=== PATIENT | male | born 1980 | race Caucasian/White ===

== ENCOUNTER 2020-05-13 17:11 | Outpatient (CLI) | payer BC, SELFPAY | END 2020-05-13 17:12 | disposition home or self-care (01) | LOC: ANHCOVIDVC 17:11 | PROVIDERS: PCP Family Medicine; Visit Provider Family Medicine | DX: Z23 Encounter for immunization (principal) | CPT/HCPCS: 0001A; 91300 ==

== ENCOUNTER 2020-06-03 16:06 | Outpatient (CLI) | payer BC, SELFPAY | END 2020-06-03 16:07 | disposition home or self-care (01) | LOC: ANHCOVIDVC 16:06 | PROVIDERS: PCP Family Medicine | DX: Z23 Encounter for immunization (principal) | CPT/HCPCS: 0002A; 91300 ==

== ENCOUNTER 2021-05-13 15:41 | Outpatient (CLI) | payer BC, SELFPAY ==
--- NOTE | ~2021-05-13 | CT_ITS ---
EXAMINATION: CT soft tissue neck wo con DATE: 05/13/2021 16:00 INDICATION: Localized swelling, mass, and lump of neck. TECHNIQUE: Computed tomography (CT) of the neck was performed without intravenous contrast. Automated exposure control and iterative reconstruction technique were employed. The dose-length product was 5 08.29 mGy-cm. COMPARISON: None FINDINGS: There is an 11 x 18 mm right mid internal jugular chain lymph node. There is a skin marker superficial to this area. There are no other enlarged lymph nodes. There is mild cervical spondylosis . IMPRESSION: 1. Mildly enlarged right mid internal jugular chain lymph node, which may be reactive, but lymphoma o r metastatic disease cannot be excluded. Given that the patient reports the lump has been present sin ce December, ultrasound-guided core needle biopsy is recommended. Reviewed, dictated and finalized at location A. ING CONTRACTOR IMPRESSION: 1. Mildly enlarged right mid internal jugular chain lymph node, which may be re active, but lymphoma or metastatic disease cannot be excluded. Given that the p atient reports the lump has been present since December, ultrasound-guided core needle biopsy is recommended.
== END 2021-05-13 15:42 | disposition home or self-care (01) ==
PROVIDERS: PCP Family Medicine; Visit Provider Family Medicine
DX: R22.1 Localized swelling, mass and lump, neck (principal)
CPT/HCPCS: 70490

== ENCOUNTER 2021-05-27 09:55 | Outpatient (CLI) | payer BC, SELFPAY ==
--- NOTE | ~2021-05-27 | US_ITS ---
EXAMINATION: US biopsy lymph node DATE: 05/27/2021 11:09 INDICATION: Enlarged right jugular chain lymph node TECHNIQUE: The procedure including the risks and benefits was discussed with the patient. Risks discu ssed included bleeding and infection. The patient understood the risks and agreed to proceed. The sk in overlying the anterior right neck was prepped and draped in usual sterile fashion. Anesthetic was administered with 1% lidocaine subcutaneously. An 18 gauge core biopsy needle was advanced under co ntinuous ultrasound observation to the lesion of interest. 6 core biopsy specimens were obtained. 2 were placed in formalin and 4 in RPMI media. The needle was removed and the entry site was cleaned a nd dressed. Post procedure ultrasound demonstrated no hemorrhage. FINDINGS: Ultrasound images demonstrate a 1.9 x 0.9 x 2.4 cm right jugular chain lymph node. Subseque nt images demonstrate biopsy needle advanced through the lymph node. IMPRESSION: 1. Successful Ultrasound-guided biopsy of a 2.4 x 1.9 x 0.9 cm right jugular chain lymph node. Reviewed, dictated and finalized at location A. IMPRESSION: 1. Successful Ultrasound-guided biopsy of a 2.4 x 1.9 x 0.9 cm right jugular ch ain lymph node.
== END 2021-05-27 09:56 | disposition home or self-care (01) ==
LOC: ANHIMG 09:56
PROVIDERS: PCP Family Medicine; Visit Provider Family Medicine
DX: R59.9 Enlarged lymph nodes, unspecified (principal)
CPT/HCPCS: 38505; 76942; 88305

== ENCOUNTER 2022-07-09 09:04 | Outpatient (CLI) | payer BC, SELFPAY ==
[2022-07-09 18:46] LABS: Basophils Absolute Auto 0.1 K/mm3 (0.0-0.1); Basophils Percent Auto 1.4 % (0.2-1.2); Eosinophils Absolute Auto 0.2 K/mm3 (0-0.3); Eosinophils Percent Auto 4.1 % (0-4.4); Hematocrit 50.6 % (42.0-52.0); Hemoglobin 16.9 g/dL (14.0-18.0); Immature Granulocyte Absolute 0.01 K/mm3 (0.00-0.031); Immature Granulocyte Percent A 0.2 % (0-0.5); Lymphocytes Absolute Auto 1.84 K/mm3 (0.9-3.2); Lymphocytes Percent Auto 37.5 % (18.3-44.2); Mean Corpuscular HGB Conc 33.4 g/dl (32-36); Mean Corpuscular Hemoglobin 29.6 pg (26-34); Mean Corpuscular Volume 88.8 fl (80-100); Mean Platelet Volume 9.5 fl (7.4-10.4); Monocytes Absolute Auto 0.5 K/mm3 (0.1-0.6); Monocytes Percent Auto 9.4 % (2.6-8.5); Neutrophils Absolute Auto 2.3 K/mm3 (1.3-6.7); Neutrophils Percent Auto 47.4 % (45.5-73.1); Platelet Count Result 224 k/mm3 (150-375); Red Cell Distribution Width 12.5 % (11.5-14.5); White Blood Count 4.9 K/mm3 (4.5-10.0)
[2022-07-09 18:58] LABS: Alanine Aminotransferase 25 U/L (6-50); Albumin Level 4.4 g/dL (3.5-5.1); Alkaline Phosphatase 59 U/L (38-126); Anion Gap 3 mmol/L (8-16); Aspartate Amino Transferase 37 U/L (17-59); Bilirubin,Total 0.9 mg/dL (0.2-1.3); Blood Urea Nitrogen 18 mg/dL (9-20); Calcium 9.2 mg/dL (8.4-10.2); Carbon Dioxide 34 mmol/L (22-30); Chloride 98 mmol/L (98-107); Cholesterol 175 mg/dL (0-200); Estimated Glomerular Filt Rate > 60; Glucose 72 mg/dL (65-110); HDL Direct 36 mg/dL; Potassium 4.4 mmol/L (3.4-5.0); Sodium 135 mmol/L (137-145); Triglycerides 59 mg/dL (<150)
[2022-07-09 19:10] LABS: LDL Cholesterol Direct 124 mg/dL
== END 2022-07-09 09:05 | disposition home or self-care (01) ==
LOC: ANHGOSHLAB 09:04
PROVIDERS: PCP Family Medicine; Visit Provider Family Medicine
DX: D75.1 Secondary polycythemia (principal); Z13.220 Encounter for screening for lipoid disorders; Z13.228 Encounter for screening for other metabolic disorders
CPT/HCPCS: 36415; 80053; 80061; 85025

== ENCOUNTER 2024-05-11 00:34 | Day surgery (SDC) | payer OTHER, SELFPAY ==
[2024-04-27 14:17] VITALS: BMI 33.0
[2024-05-11 06:20] VITALS: BP 129/89; PULSE 91; RESP 16; TEMP 36.2; O2SAT 98; BMI 33.5
[2024-05-11] MEDS: LACTATED RINGERS 1,000 ML 150 ML IV CONT (06:29)
--- NOTE | 2024-05-11 07:19 | WPDANESEPPF ---
Anes - Initial Pre Proc Eval Procedure: Operation Date: 05/11/24 07:30 Proposed Procedures p Screening Colonoscopy - Mark Anthony Newell MD Date/Time: 05/11/24 07:19 Surgeon: Mark Anthony Newell MD Pre Op Diagnosis: Screening for malignant neoplasm of colon. Patient Data Age: 44 Gender: M Height: 1.68 m Weight: 94.4 kg Last Vital Signs Temp 97.2 F L 05/11/24 06:20 Pulse 91 05/11/24 06:20 Resp 16 05/11/24 06:20 BP 129/89 05/11/24 06:20 Pulse Ox 98 05/11/24 06:20 O2 Del Method Room Air 05/11/24 06:20 Allergies Allergy/AdvReac Type Severity Reaction Status Date / Time No Known Allergies Allergy Verified 05/11/24 06:19 Home Medications ?Medication ?Instructions ?Recorded ?Confirmed ?Type No Home Medications 01/02/24 04/27/24 History Patient hx anesthesia problems: none Family hx anesthesia problems: none Results Review: All pre-operative results and documents have been reviewed as part of the pre-operative evaluation. [facility] Family History Family History Mother Depression Family history of cardiovascular disease Cerebrovascular accident Family history of atrial fibrillation Father Hypertension Grandparent Acute myocardial infarction, Onset Age: 49 Social History Social History Smoking status: Never smoker Alcohol intake: current Alcohol use details: very socially Substance use: never Substance use type: does not use Lack of Transportation: No Lack of Food: Never True Current Housing: I Have Housing Concerned About Future Housing: No Difficulty Paying Gas/Electric Bills: No Difficulty Paying for Meds: No Currently Unemployed: No Education: Associate Degree Difficulty w/ Childcare or Family Care: No Living arrangements: alone Spiritual care concerns: No Anes - Eval Final PreProcedure Day of Procedure 05/11/24 07:20 Patient weight: obese Lungs: normal air movement Airway: Mallampati scale class II Neurological: alert and oriented Last oral intake: >/= 8 hours ASA classification: II Emergent: no Anesthetic plan: proceed Anesthesia type and monitoring: general GIVS and standard monitoring Results Review: All pre-operative results and documents have been reviewed as part of the pre-operative evaluation. BMI 33, physically active job, no cp or sob. Informed Consent: The patient's anesthetic plan and its attendant risks and benefits were discussed with the patient/family/POA. Questions were solicited and answers provided to the satisfaction of the patient/family/POA.
--- NOTE | 2024-05-11 07:38 | PM.HPGS ---
History of Present Illness History of Present Illness Consent: Risks, benefits, and alternatives have been discussed and questions answered. Patient agrees to proceed with procedure. Chief complaint: Screening for malignant neoplasm of colon. Narrative: Shun Guzmán is a 44 year old male here for first screening colonoscopy Review of Systems Review of Systems: All systems reviewed & are unremarkable except as noted in HPI and below PMFSH Past Medical History Medical History (Updated 05/11/24 @ 07:38 by Mark Anthony Newell MD) Colon cancer screening Family History Family History Mother Depression Family history of cardiovascular disease Cerebrovascular accident Family history of atrial fibrillation Father Hypertension Grandparent Acute myocardial infarction, Onset Age: 49 Social History Social History Smoking status: Never smoker Alcohol intake: current Alcohol use details: very socially Substance use: never Substance use type: does not use Lack of Transportation: No Lack of Food: Never True Current Housing: I Have Housing Concerned About Future Housing: No Difficulty Paying Gas/Electric Bills: No Difficulty Paying for Meds: No Currently Unemployed: No Education: Associate Degree Difficulty w/ Childcare or Family Care: No Living arrangements: alone Spiritual care concerns: No Meds Home Medications and Allergies Home Medications ?Medication ?Instructions ?Recorded ?Confirmed ?Type No Home Medications 01/02/24 04/27/24 History Allergies Allergy/AdvReac Type Severity Reaction Status Date / Time No Known Allergies Allergy Verified 05/11/24 06:19 Vital Signs Vital Signs - 24 hr 05/11/24 06:20 Temperature 97.2 F L Pulse Rate 91 Respiratory Rate 16 Blood Pressure 129/89 Pulse Oximetry 98 Oxygen Delivery Room Air Exam Const: General: comfortable and no acute distress HENMT: Face/Nose/Sinus: Normal nares present Eyes: General: appearance normal, both eyes and all related structures Neck: Neck: no JVD Resp: Auscultation: clear to auscultation bilaterally Cardio: Rate: regular rate Rhythm: regular rhythm GI: Inspection: non-distended GI Palp: Yes Soft to palpation Skin: General skin exam: normal color Neuro: General: gait normal Speech: normal speech Extrem: General: normal to inspection Psych: Mental Status: mental status grossly normal Assessment and Plan Assessment and plan (1) Colon cancer screening: Code(s): Z12.11 - Encounter for screening for malignant neoplasm of colon Status: Acute Assessment and Plan: colonoscopy
[2024-05-11 07:50] VITALS: BP 137/79; PULSE 90; RESP 20; O2SAT 97
[2024-05-11 08:00] VITALS: BP 133/81; PULSE 85; RESP 17; O2SAT 97
[2024-05-11 08:10] VITALS: BP 122/81; PULSE 83; RESP 20; O2SAT 96
== END 2024-05-11 08:14 | disposition home or self-care (01) ==
PROVIDERS: PCP Internal Medicine; Referring Provider Family Medicine; Visit Provider Internal Medicine Gastroenterology
PROC: 0DJD8ZZ Inspection of Lower Intestinal Tract, Via Natural or Artificial Opening Endoscopic (ICD-10-PCS; CPT 45378; principal; 2024-05-11 07:30)
DX: Z12.11 Encounter for screening for malignant neoplasm of colon (principal); D12.8 Benign neoplasm of rectum
CPT/HCPCS: 45380; 88305; J2003; J2704; J7120

== ENCOUNTER 2025-01-08 15:34 | Outpatient (CLI) | payer OTHER, SELFPAY ==
--- OUTSIDE RECORDS SUMMARY | 2025-01-08 17:32 | XMS_ITS | Clinical Summary ---
Author Organization [facility] Address [address] [place] [address] Care Team Providers Care Access Nurse Name Role Phone Unavailable Primary Care Provider Unavailabl e Source Comments [facility],non-owned Affiliates and Associated Physician Practices is amultiple site organization consisting of ambulatory clinics and hospital sitesin [place], [place], [place] and [place]. This disclosure is being madepursuant to the Care Everywhere program and may not contain all information available regarding this patient. Last updated 17.[facility] Allergies No known active allergies Immunizations Immunization Administration Dates Next Due TDAP (7yrs+) 06/30/2016 Social History Tobacco Use Types Packs/Day Years Used Date Smoking Tobacco: Never Smokeless Tobacco: Current Chew Alcohol Use Standard Drinks/Week Comments No 0 (1 standard drink = 0.6 oz pur e alcohol) Sex and Gender Information Value Date Recorded Sex Assigned at Not on file Legal Sex Male 9:55 AM CDT Gender Identity Not on file Sexual Orientation Not on file Last Filed Vital Signs Vital Sign Reading Time Taken Comments Blood Pressure 137/86 06/30/2016 12:23 PM CDT Pulse - - Temperature - - Respiratory Rate - - Oxygen Saturation 97% 06/30/2016 12:23 PM CDT Inhaled Oxygen Concentration - - Weight - - Height - - Body Mass Index - - Plan of Treatment Health Maintenance Due Date Last Done Comments COLOGUARD (AGES 45-75) - COL ON CA SCREENING 1978 COLON MONITORING 1978 COLONOSCOPY - COLON CA SCREENING 1978 CT COLONOGRAPHY - COLON CA SCREENING 1978 Colorectal Cancer Screening 1978 FIT - COLON CA SCREENING 1978 FLEX SIG - COLON CA SCREENING 1978 LIPID TESTING 1978 HIV SCREENING 1993 HEPATITIS C SCREENING 02/15/1996 HEPATITIS B VACCINE (1 of 3 - 19+ 3-dose series) 1997 DEPRESSION SCREENING 03/14/2024 COVID-19 VACCINE (1 - 2023-2 5 season) 2024 INFLUENZA VACCINE (#1) 2024 DTAP/TDAP/TD VACCINES (2 - T d or Tdap) 06/30/2026 06/30/2016 ZOSTER VACCINE (1 of 2) 02/20/2028 HIB VACCINE Aged Out No longer eligi ble based on patient's age to complete this topic HPV VACCINE Aged Out No longer eligi ble based on patient's age to complete this topic MENINGOCOCCAL (Group B) VACC INE SHARED DECISION-MAKING Aged Out No longer eligibl e based on patient's age to complete this topic MENINGOCOCCAL GROUPS A/C/Y/W VACCINE Aged Out No longer eligible b ased on patient's age to complete this topic PNEUMOCOCCAL VACCINE Aged Out No long er eligible based on patient's age to complete this topic Insurance [employer] SELF PAY NO INSURANCE Member Subscriber Plan / Payer (Ef fective for All Dates) Name:Shun Guzmán Member ID:Not on file Relation to Subscriber:Not on file Name:SHUN GUZMÁN Subscriber ID:Not on file (Home) Address: [address] [place] [address] Payer ID:Not on file Group ID:Not on file Type:Self Pay Address: [place], [place] [address] [place] [address] [place] [place] [address] [place] [address] PAYOR GENERIC PAYOR GENERIC Comp ANTHEM Advance Directives Documents on File Type Date Recorded 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
--- OUTSIDE RECORDS SUMMARY | 2025-01-08 17:32 | XMS_ITS | Clinical Summary ---
Author Organization [facility] Address [address] [place] [address] Care Team Providers Care Floral Associate Name Role Phone Peace Goins MD Primary Care Provider [phone] Allergies No known active allergies Medications cetirizine 10 mg capsuleIndicati ons:Allergic Rhinitis Take 1 tablet by mouth every morning Active Active Problems Problem Noted Date Diagnosed Date Enlarged lymph node in neck 08/12/2021 Overview (09/01/2021): DIAGNOSIS: Right jugulodigastric lymphadenopathy PROCEDURE PERFORMED: (David 08/18/21) Right jugulodigastric lymph node excisional biopsy Neck mass 06/09/2021 Overview (08/12/2021): Asymmetry of the right jugulodigastric lymph node Immunizations Immunization Administration Dates Next Due Influenza, Quadrivalent, Ines l Culture-based MDCK, Preservative Free, Antibiotic Free, Intramuscular 12/18/2018 Influenza, Quadrivalent, Spl it, Preservative Free, Intramuscular 11/24/2020,12/03/2019,12/17/2017 Influenza, Trivalent, IM (MDV) 12/12/2016,2013 Influenza, Trivalent, Preser vative Free, Intramuscular 12/29/2014 Pfizer SARS-CoV-2 Monovalent Vaccination (12+ Yrs) PURPLE 01/13/2021 Td, adsorbed 07/22/2015 Tdap 05/21/2019,06/30/2016 Surgical History Surgery Date Site/Laterality Comments TONSILLECTOMY 03/14/2001 - 03/13/2002 WISDOM TOOTH EXTRACTION 03/14/1997 - 03/13/1998 Medical History Medical History Date Comments Allergies Family History Medical History Relation Name Comments Heart disease Mother Kidney disease Mother Anesthesia problems Neg Hx Relation Name Status Comments Mother Social History Tobacco Use Types Packs/Day Years Used Date Smoking Tobacco: Never Smokeless Tobacco: Former Chew Quit: 1999 AUDIT-C Answer Date Recorded Q1: How often do you have a drink containing alc ohol? Never 08/18/2021 Average Number of Drinks Not on file 022 Q3: How often do you have si x or more drinks on one occasion? Never 08/18/2021 Sex and Gender Information Value Date Recorded Sex Assigned at Not on file Legal Sex Male 1:27 PM CDT Gender Identity Not on file Sexual Orientation Not on file Obstetrics History Last Filed Vital Signs Vital Sign Reading Time Taken Comments Blood Pressure 125/68 08/18/2021 11:30 AM CDT Pulse 56 08/18/2021 11:30 AM CDT Temperature 36.3 C (97.3 F) 08/18/2021 11:30 AM CDT Respiratory Rate 19 08/18/2021 11:30 AM CDT Oxygen Saturation 91% 08/18/2021 11:30 AM CDT Inhaled Oxygen Concentration - - Weight 93.4 kg (206 lb) 09/02/2021 4:17 PM CDT Height 167.6 cm (5' 6) 08/13/2021 9:05 AM CDT Body Mass Index 33.25 08/13/2021 9:05 AM CDT Plan of Treatment Health Maintenance Due Date Last Done Comments Colon Cancer Screening-Colonoscopy 1978 Depression Screening 1978 Hepatitis C Screening 1978 Hepatitis B Screening 02/20/1996 Regular Well Visit/Exam 18-64 02/20/1996 Covid-19 Vaccine ( season) 2024 01/13/2021, 06/03/2020, 05/13/2020 Influenza Vaccine (#1) 2024 , 12/03/2019, 12/18/2018, Additional history exists DTaP/Tdap/Td Vaccine (3 - Td or Tdap) 05/20/2029 05/21/2019, 06/30/2016, 07/22/2015 HPV Vaccines Aged Out No longer eligi ble based on patient's age to complete this topic Pneumococcal vaccine <65 Aged Out No longer eligible based on patient's age to complete this [place] [address] [employer] [address] [employer] Care Teams Floral Associate Relationship Specialty Start Date End Date Peace Goins MD [address] [place] [address] PCP - General Family Medicine 06/01/21
[2025-01-08 19:13] LABS: Alanine Aminotransferase 25 U/L (6-50); Albumin Level 5.0 g/dL (3.5-5.1); Alkaline Phosphatase 58 U/L (38-126); Anion Gap 10 mmol/L (4-12); Aspartate Amino Transferase 50 U/L (17-59); Bilirubin,Total 1.6 mg/dL (0.2-1.3); Blood Urea Nitrogen 13 mg/dL (9-20); Calcium 9.6 mg/dL (8.4-10.2); Carbon Dioxide 30 mmol/L (22-30); Chloride 98 mmol/L (98-107); Cholesterol 205 mg/dL (0-200); Estimated Glomerular Filt Rate > 60; Glucose 83 mg/dL (65-110); HDL Direct 46 mg/dL; Potassium 4.2 mmol/L (3.4-5.0); Sodium 138 mmol/L (137-145); Total Protein 8.1 g/dL (6.3-8.2); Triglycerides 43 mg/dL (<150)
[2025-01-08 19:14] LABS: Hematocrit 52.7 % (42.0-52.0); Hemoglobin 18.1 g/dL (14.0-18.0); Immature Granulocyte Percent A 0.3 % (0-0.5); Lymphocytes Absolute Auto 1.70 K/mm3 (0.9-3.2); Mean Corpuscular HGB Conc 34.3 g/dl (32-36); Mean Corpuscular Hemoglobin 30.1 pg (26-34); Mean Corpuscular Volume 87.5 fl (80-100); Nucleated Red Blood Cells Absolute Auto 0.000 K/mm3 (0.0-0.012); Nucleated Red Blood Cells Perc 0.0 % (0.0-0.2); Platelet Count Result 247 k/mm3 (150-375); Red Blood Count 6.02 M/mm3 (4.6-6.20); White Blood Count 6.0 K/mm3 (4.5-10.0)
[2025-01-08 20:01] LABS: Prostate Specific Antigen 0.6 ng/mL (< OR = 4.0); Thyroid Stimulating Hormone 0.919 uIU/mL (0.465-4.680)
[2025-01-08 20:35] LABS: Vitamin B12 324.0 pg/mL (239-931)
== END 2025-01-08 15:35 | disposition home or self-care (01) ==
LOC: ANHGOSHLAB 15:35
PROVIDERS: PCP Internal Medicine
DX: E55.9 Vitamin D deficiency, unspecified (principal); R79.89 Other specified abnormal findings of blood chemistry; Z12.5 Encounter for screening for malignant neoplasm of prostate; R53.83 Other fatigue; Z13.29 Encounter for screening for other suspected endocrine disorder; Z13.0 Encounter for screening for diseases of the blood and blood-forming organs and certain disorders involving the immune mechanism; Z13.228 Encounter for screening for other metabolic disorders; E87.1 Hypo-osmolality and hyponatremia; E78.5 Hyperlipidemia, unspecified
CPT/HCPCS: 36415; 80053; 80061; 82172; 82306; 82607; 82746; 84153; 84443; 85025; G0103

== ENCOUNTER 2025-01-18 08:00 | Outpatient (CLI) | payer OTHER, SELFPAY ==
--- OUTSIDE RECORDS SUMMARY | 2025-01-18 08:11 | XMS_ITS | Clinical Summary ---
Author Organization [facility] Address [address] [address] Care Team Providers Care Retail Sales Representative Name Role Phone Unavailable Primary Care Provider Unavailabl e Source Comments [facility],non-owned Affiliates and Associated Physician Practices is amultiple site organization consisting of ambulatory clinics and hospital sitesin [place], [place], [place] and [place]. This disclosure is being madepursuant to the Care Everywhere program and may not contain all information available regarding this patient. Last updated 17.[facility] Allergies No known active allergies Immunizations Immunization [...] age to complete this topic Insurance [facility] Address: [facility] [address] [place] [address] SELF PAY NO INSURANCE Member Subscriber Plan / Payer (Ef fective for All Dates) Name:Shun Guzmán Member ID:Not on file Relation to Subscriber:Not on file Name:SHUN GUZMÁN Subscriber ID:Not on file (Home) Address: [address] [place] [address] Payer ID:Not on file Group ID:Not on file Type:Self Pay Address: [place], [place] [address] [place] [address] [place] [place] [address] PAYOR GENERIC PAYOR GENERIC Comp ANTHEM Advance Directives Documents on File Type Date Recorded Patient Mortgage Loan Reviewer Expl anation Adv Directive/Living Will/POA 06/30/2016
--- OUTSIDE RECORDS SUMMARY | 2025-01-18 08:11 | XMS_ITS | Clinical Summary ---
Author Organization [facility] Address [address] [place] [address] Care Team Providers Care Jalousie Installer Name Role Phone Peace Goins MD Primary Care Provider [phone] Allergies No known active allergies Medications cetirizine [...] 08/13/2021 9:05 AM CDT Plan of Treatment Not on file Insurance [facility] Care Teams Jalousie Installer Relationship Specialty Start Date End Date Peace Goins MD [address] [place] [address] PCP - General Family Medicine 06/01/21
[2025-01-21 23:07] LABS: Free Testosterone (Direct) 8.8 pg/mL (6.8-21.5)
== END 2025-01-18 08:01 | disposition home or self-care (01) ==
LOC: ANHGOSHLAB 08:01
PROVIDERS: PCP Internal Medicine
DX: E29.1 Testicular hypofunction (principal)
CPT/HCPCS: 84402; 84403